=== PATIENT | male | born 1950 | race Caucasian/White ===

== ENCOUNTER → 2020-11-07 | Outpatient (CLI) | payer MEDICARE ==
[~2020-11-07] MED LIST: FINA1TAB PO; MULT-449 PO; TAMS-11 PO; [UNRECOGNIZED DRUG - CODE] PO
[2020-11-07 14:02] LABS: BASOPHILS % (AUTO) 1 % (0-1); EOSINOPHILS % (AUTO) 1 % (1-7); LYMPHOCYTES % (AUTO) 19 % (22-44); MEAN CORPUSCULAR HEMOGLOBIN 30.1 pg (27.5-34.5); MEAN CORPUSCULAR HGB CONC 34.8 g/dL (33.2-36.2); MEAN PLATELET VOLUME 7.5 fL (7.4-10.4); MONOCYTES % (AUTO) 7 % (2-9); NEUTROPHILS % (AUTO) 72 % (42-75); PLATELET COUNT 228 x10^3/uL (130-400); RED BLOOD COUNT 4.83 x10^6/uL (4.38-5.82); RED CELL DISTRIBUTION WIDTH 13.7 % (9.4-14.8)
[2020-11-07 14:10] LABS: ALANINE AMINOTRANSFERASE 20 U/L (12-78); CHLORIDE 111 mmol/L (98-107)
[2020-11-07 14:16] LABS: ALBUMIN 3.6 g/dL (3.4-5.0); ALKALINE PHOSPHATASE 75 U/L (45-117); ANION GAP 6 mmol/L (5-15); BILIRUBIN,TOTAL 0.6 mg/dL (0.2-1.0); CALCIUM 8.9 mg/dL (8.5-10.1); CREATININE 1.25 mg/dL (0.7-1.3); TOTAL PROTEIN 7.4 g/dL (6.4-8.2)
== END | disposition home or self-care (01) ==
LOC: STAR 13:09
PROVIDERS: ATTEND Urology
DX: Z01.812 Encounter for preprocedural laboratory examination (principal); Z20.822 Contact with and (suspected) exposure to COVID-19; N21.0 Calculus in bladder; I45.10 Unspecified right bundle-branch block
CPT/HCPCS: 36415; 80053; 85025; 87635; 93005

== ENCOUNTER 2020-11-13 08:00 | Day surgery (SDC) | payer MEDICARE ==
[~2020-11-13] VITALS: Ht 170.2 cm; Wt 68.9 kg
[2020-11-13 14:16] VITALS: BP 146/92
== END 2020-11-13 19:00 | disposition home or self-care (01) ==
LOC: OR 08:00
PROVIDERS: ATTEND Urology
DX: N21.0 Calculus in bladder (principal); N40.0 Benign prostatic hyperplasia without lower urinary tract symptoms; N39.0 Urinary tract infection, site not specified; R33.9 Retention of urine, unspecified; Z79.899 Other long term (current) drug therapy